=== PATIENT | female | born 1990 | race Caucasian/White ===

== ENCOUNTER 2018-02-06 12:04 | Emergency (ER) | payer OTHER ==
[~2018-02-06] VITALS: Ht 165.1 cm; Wt 97.5 kg
--- NOTE | 2018-02-06 12:22 | ED GI/GU/ABDOMINAL COMPLAINT ---
History of Present Illness General Chief Complaint: Nausea, Vomiting, Diarrhea Stated Complaint: +NVD, LOWER BACK PAIN RADIATING TO ABD Source: patient, family Exam Limitations: no limitations Vital Signs & Intake/Output Vital Signs & Intake/Output Vital Signs Date Time Temp Pulse Resp B/P B/P Pulse O2 O2 Flow FiO2 Mean Ox Delivery Rate 02/06 1309 Room Air 02/06 1210 98.3 128 20 128/82 98 Room Air Allergies Coded Allergies: No Known Allergies (02/06/18) Reconcile Medications Ondansetron (Zofran Odt) 4 MG TAB.RAPDIS 1 TAB SL TID NAUSEA Triage Note: PT C/O LOWER BACK PAIN THAT RADIATES INTO ABDOMEN WITH N/V/D SINCE LAST NIGHT. DENIES URINARY S&S Triage Nurses Notes Reviewed? yes ? N Is pt currently ? No HPI: 27F no PMH with one day of right flank pain radiating to RLQ, nausea, intractable vomiting, and 10+ episodes of diarrhea. Pain started first at 1am, was then followed by GI symptoms. Last BM 1 hour ago. No blood or mucous in stool or vomit. No recent travel, sick contacts, or unsual food intake. Denies fever, chills, sore throat, vision changes, chest pain, palpitations, SOB, dysuria. She does report a mild headache. Has had multiple illnesses ever since giving 10 months ago, with every month developing abdominal pain or URI symptoms. She is unable to tolerate any PO. Past History Travel History Traveled to [place] past 21 day No Medical History Any Pertinent Medical History? see below for history Cardiovascular: PCOS Surgical History Surgical History: non-contributory Psychosocial History What is your primary language [place] Tobacco Use: Never used ETOH Use: denies use Illicit Drug Use: denies illicit drug use Family History Hx Contributory? No Review of Systems Review of Systems Constitutional: Reports: no symptoms. EENTM: Reports: no symptoms. Respiratory: Reports: no symptoms. Cardiovascular: Reports: no symptoms. GI: Reports: no symptoms. Genitourinary: Reports: no symptoms. Musculoskeletal: Reports: no symptoms. Skin: Reports: no symptoms. Neurological/Psychological: Reports: no symptoms. Hematologic/Endocrine: Reports: no symptoms. Immunologic/Allergic: Reports: no symptoms. All Other Systems: Reviewed and Negative Physical Exam Physical Exam General Appearance: well developed/nourished, no apparent distress, mild distress, dry Head: atraumatic, normal appearance Eyes: Bilateral: normal appearance. Ears, Nose, Throat, Mouth: hearing grossly normal, dry Neck: normal inspection, supple, full range of motion Respiratory: normal breath sounds, no respiratory distress Cardiovascular: regular rate/rhythm Gastrointestinal: soft, non-tender Rectal: deferred Back: normal inspection, normal range of motion, No CVA tenderness, right lumbar paraspinal tenderness, no sciatic signs Extremities: normal range of motion Neurologic/Psych: awake, alert, oriented x 3, normal mood/affect Skin: intact, normal color, warm/dry Core Measures ACS in differential dx? No Sepsis Present: No Sepsis Focused Exam Completed? No Progress Differential Diagnosis: appendicitis, biliary colic, bowel obstruction, colon cancer, cholecystitis, diverticulitis, ectopic , gastritis, inflamm bowel dis, kidney stone, pancreatitis, PUD/GERD, UTI/pyelo Plan of Care: Orders Procedure Date/time Status HUMAN BETA HCG SCREEN 02/06 1300 Complete URINALYSIS 02/06 1225 Complete THYROID STIMULATING HORMONE 02/06 1222 Complete TROPONIN LEVEL 02/06 1222 Complete LIPASE 02/06 1222 Complete CORTISOL AM 02/06 1222 Complete COMPREHENSIVE METABOLIC PANEL 02/06 1222 Complete CBC WITHOUT DIFFERENTIAL 02/06 1222 Complete Laboratory Tests 02/06/18 1300: Anion Gap 15, Estimated GFR > 60, BUN/Creatinine Ratio 11.7, Glucose 101 H, Calcium 9.1, Total Bilirubin 0.8, AST 17, ALT 37, Alkaline Phosphatase 75, Troponin I < 0.01, Total Protein 7.6, Albumin 4.0, Globulin 3.6, Albumin/ Globulin Ratio 1.1, Lipase 186, TSH 0.958, Total Beta HCG NEGATIVE, Cortisol AM Sample 20.4, CBC w Diff NO MAN DIFF REQ, RBC 4.95, MCV 87.7, MCH 29.5, MCHC 33.6 , RDW 12.6, MPV 7.5, Gran % 81.4 H, Lymphocytes % 12.1 L, Monocytes % 5.6, Eosinophils % 0.5, Basophils % 0.4, Absolute Granulocytes 9.0 H, Absolute Lymphocytes 1.3, Absolute Monocytes 0.6, Absolute Eosinophils 0.1, Absolute Basophils 0, Urine Color YEL, Urine Clarity CLEAR, Urine pH 6.0, Ur Specific [place] 1.010, Urine Protein NEG, Urine Ketones NEG, Urine Nitrite NEG, Urine Bilirubin NEG, Urine Urobilinogen 0.2, Ur Leukocyte Esterase NEG, Ur Microscopic EXAM NOT REQUIRED, Urine Hemoglobin NEG, Urine Glucose NEG 02/06/18 1225: Total Beta HCG Cancelled Workup negative. Likely acute gastroenteritis. Will give Zofran and ask to follow up w as an outpatient. Diagnostic Imaging: Viewed by Me: CT Scan. Discussed w/RAD: CT Scan. Radiology Impression: PATIENT: SARAH NOVA PRESENT AGE: 27 PATIENT ACCOUNT NO: [id number] : 89 LOCATION: [facility] ORDERING PHYSICIAN: Heather Bond MD SERVICE DATE: 02/06/18 EXAM TYPE: CAT - CT ABD & PELVIS W/O IV CONTRAS EXAMINATION: CT ABDOMEN AND PELVIS WITHOUT CONTRAST CLINICAL INFORMATION: Right flank and right lower quadrant pain with nausea, vomiting and diarrhea. COMPARISON: None TECHNIQUE: Multidetector volumetric imaging was performed from the superior aspect of the liver through the pubic symphysis. Sagittal and coronal reformatted images were obtained on the technologist's workstation. DLP: 570.89 mGy-cm FINDINGS: LUNG BASES: The visualized lung bases are unremarkable. LIVER, GALLBLADDER, AND BILIARY TREE: The liver is normal in size and shape. There is mild diffuse hepatic steatosis.. No focal hepatic lesion or biliary ductal dilatation is present. There are nonradiopaque gallstones within the gallbladder with possibly a small amount of dependent sludge. No gallbladder wall thickening or pericholecystic fluid. The common bile duct is normal. PANCREAS: Unremarkable. SPLEEN: Unremarkable. ADRENAL GLANDS: Unremarkable. KIDNEYS AND URETERS: The kidneys are normal in size, shape, and attenuation. No hydronephrosis, hydroureter, or calculi seen. No perinephric stranding. BLADDER: Partially collapsed, limiting evaluation. No bladder calculi. GASTROINTESTINAL TRACT: The small and large bowel are unremarkable. The appendix is not definitely visualized however there are no inflammatory changes in the right lower quadrant or the expected location of the appendix to suggest an acute inflammatory etiology. ABDOMINAL WALL: No significant hernia is appreciated. LYMPH NODES: Normal. VASCULAR: Unremarkable. PELVIC VISCERA: Unremarkable. OSSEOUS STRUCTURES: Unremarkable. IMPRESSION: No renal or ureteral calculi. No acute abdominal/pelvic pathology. Cholelithiasis. No evidence of cholecystitis. DICTATED BY: Luis Rhoades MD DATE/TIME DICTATED :02/06/181431 TEA LEAF READER:SOPHIA DATE/TIME TRANSCRIBED:02/06/181431 CONFIDENTIAL, DO NOT COPY WITHOUT APPROPRIATE AUTHORIZATION. < Electronically signed in Other Vendor System> SIGNED BY: Luis Rhoades MD 02/06/18 1442 Initial ED EKG: none Departure Departure Disposition: HOME OR SELF CARE Condition: Stable Clinical Impression Primary Impression: Acute gastroenteritis Secondary Impressions: Dehydration Additional Instructions: Stay well hydrated. You can use oral rehydration solutions that can be bought over the counter. You can start with the BRAT diet (bananas, rice, applesauce, toast). Take Zofran for nausea. Follow up with your PCP. Return to ER if any new or worsening symptoms. Departure Forms: Customer Survey General Discharge Information Prescriptions: Current Visit Scripts Ondansetron (Zofran Odt) 1 TAB SL TID #15 TAB
[2018-02-06 13:13] LABS: ABSOLUTE BASOPHIL COUNT 0 /CUMM (0.0-0.2); ABSOLUTE EOSINOPHIL COUNT 0.1 /CUMM (0.0-0.7); ABSOLUTE LYMPH COUNT 1.3 /CUMM (1.2-3.4); ABSOLUTE MONOCYTE COUNT 0.6 /CUMM (0.10-0.60); BASOPHIL % 0.4 % (0.0-2.0); EOSINOPHIL % 0.5 % (0-5); GRANULOCYTE % 81.4 % (42.2-75.2); HEMATOCRIT 43.4 % (37-47); MEAN CORPUSCULAR HGB 29.5 PG (27.0-31.0); MEAN CORPUSCULAR HGB CONC 33.6 G/DL (33.0-37.0); MEAN CORPUSCULAR VOLUME 87.7 FL (81.0-99.0); MEAN PLATELET VOLUME 7.5 FL (7.4-10.4); PLATELET COUNT 412 /CUMM (130-400); RBC DISTRIBUTION WIDTH 12.6 % (11.5-14.5); RED BLOOD CELL CT 4.95 /CUMM (4.20-5.40); WHITE BLOOD CELL COUNT 11.1 /CUMM (4.8-10.8)
--- NOTE | 2018-02-06 14:42 | CT SCAN REPORT ---
EXAMINATION: CT ABDOMEN AND PELVIS WITHOUT CONTRAST CLINICAL INFORMATION: Right flank and right lower quadrant pain with nausea, vomiting and diarrhea. COMPARISON: None TECHNIQUE: Multidetector volumetric imaging was performed from the superior aspect of the liver through the pubic symphysis. Sagittal and coronal reformatted images were obtained on the technologist's workstation. DLP: 570.89 mGy-cm FINDINGS: LUNG BASES: The visualized lung bases are unremarkable. LIVER, GALLBLADDER, AND BILIARY TREE: The liver is normal in size and shape. There is mild diffuse hepatic steatosis.. No focal hepatic lesion or biliary ductal dilatation is present. There are nonradiopaque gallstones within the gallbladder with possibly a small amount of dependent sludge. No gallbladder wall thickening or pericholecystic fluid. The common bile duct is normal. PANCREAS: Unremarkable. SPLEEN: Unremarkable. ADRENAL GLANDS: Unremarkable. KIDNEYS AND URETERS: The kidneys are normal in size, shape, and attenuation. No hydronephrosis, hydroureter, or calculi seen. No perinephric stranding. BLADDER: Partially collapsed, limiting evaluation. No bladder calculi. GASTROINTESTINAL TRACT: The small and large bowel are unremarkable. The appendix is not definitely visualized however there are no inflammatory changes in the right lower quadrant or the expected location of the appendix to suggest an acute inflammatory etiology. ABDOMINAL WALL: No significant hernia is appreciated. LYMPH NODES: Normal. VASCULAR: Unremarkable. PELVIC VISCERA: Unremarkable. OSSEOUS STRUCTURES: Unremarkable. IMPRESSION: No renal or ureteral calculi. No acute abdominal/pelvic pathology. Cholelithiasis. No evidence of cholecystitis.
[2018-02-06] MEDS ORDERED: ZOFRAN ODT4 M1 SL (15:07)
[2018-02-06 15:17] VITALS: BP 118/70
== END 2018-02-06 15:18 ==
LOC: ERH 12:04
PROVIDERS: Internal Medicine
DX: K52.9 Noninfective gastroenteritis and colitis, unspecified (principal); E86.0 Dehydration
CPT/HCPCS: 74176; 81003; 96374; 96375; J1885; J2405